=== PATIENT | male | born 1995 | race American Indian/Alaskan Native ===

== ENCOUNTER 2018-02-18 14:25 | Observation (INO) | payer BC ==
--- NOTE | 2018-02-18 14:52 | ED PDOC ---
Arrival/HPI - General Time Seen by Provider: 02/18/18 14:45 Historian: Patient - History of Present Illness Narrative History of Present Illness (Text): 02/18/18 14:46 22 y/o male, no significant pmh, nkda, c/o generalized abdominal pain with diarrhea/nausea x 4 days after came back from [place]. Pt. stated that he return back from [place] about 4 days ago, been drinking bottled water there, no sick contact, been having epigastric and lower abdominal pain, feeling nausea with no vomiting, admits diarrhea, no recent antibiotic use for the past 3 months, no palpitation, no night sweat, no dizziness, no numbness or tingling, no other medical or psychological complaints. Past Medical History - Provider Review Nursing Documentation Reviewed: Yes Family/Social History - Physician Review Nursing Documentation Reviewed: Yes Family/Social History: Unknown Family HX Allergies/Home Meds Allergies/Adverse Reactions: Allergies No Known Allergies Allergy (Verified 02/18/18 14:51) Home Medications: Home Meds Medication Instructions Recorded Confirmed No Known Home Med 02/18/18 02/18/18 Review of Systems - Review of Systems Constitutional: absent: Fatigue, Fevers Eyes: absent: Vision Changes ENT: absent: Hearing Changes Respiratory: absent: SOB, Cough Cardiovascular: absent: Chest Pain Gastrointestinal: Abdominal Pain, Nausea. absent: Diarrhea, Vomiting Genitourinary Male: absent: Dysuria, Frequency Musculoskeletal: absent: Arthralgias, Back Pain Skin: absent: Rash, Pruritis, Skin Lesions Neurological: absent: Headache, Dizziness Psychiatric: absent: Anxiety, Depression, Suicidal Ideation Physical Exam Vital Signs Reviewed: Yes Vital Signs Temp Pulse Resp BP Pulse Ox 02/18/18 17:20 76 19 129/56 L 98 02/18/18 16:42 85 02/18/18 14:47 97.8 F 62 18 133/78 99 02/18/18 14:25 98 F 85 Temperature: Afebrile Blood Pressure: Normal Pulse: Regular Respiratory Rate: Normal Appearance: Positive for: Well-Appearing, Non-Toxic, Comfortable Pain Distress: Mild Mental Status: Positive for: Alert and Oriented X 3 - Systems Exam Head: Present: Atraumatic, Normocephalic Pupils: Present: PERRL Extroacular Muscles: Present: EOMI Conjunctiva: Present: Normal Mouth: Present: Moist Mucous Membranes Neck: Present: Normal Range of Motion Respiratory/Chest: Present: Clear to Auscultation, Good Air Exchange. No: Respiratory Distress, Accessory Muscle Use Cardiovascular: Present: Regular Rate and Rhythm, Normal S1, S2. No: Murmurs Abdomen: Present: Tenderness (epigastric and periumbilical region, negative keys signs. ). No: Distention, Peritoneal Signs, Rebound, Guarding Back: Present: Normal Inspection Upper Extremity: Present: Normal Inspection. No: Cyanosis, Edema Lower Extremity: Present: Normal Inspection. No: Edema Neurological: Present: GCS=15, CN II-XII Intact, Speech Normal, Motor Func Grossly Intact, Gait Normal, Memory Normal Skin: Present: Warm, Dry, Normal Color. No: Rashes Psychiatric: Present: Alert, Oriented x 3, Normal Insight, Normal Concentration Medical Decision Making ED Course and Treatment: 02/18/18 14:56 Differential: Colitis vs. Dehydration vs. Gastroenteritis vs. Appendicitis -Labs/lipase/UA/stool culture -CT abdomen and pelvis -IVF/pepcid/zofran -Observe and reassess 02/18/18 18:36 -CT abdomen and pelvis show Findings suggest enterocolitis. What is felt to represent the appendix exhibits slightly prominent caliber measuring up to 7 mm with minimal wall thickening though this is probably reactive secondary to the aforementioned changes of enterocolitis. Clinical correlation recommended however. -Labs are non-significant -UA show no UTI -Pt. still having pain, periumbilical pain region still remain, still has diarrhea, CT show enterocolitis with possible appendicitis?, will admit the patient for observation. IV rocephine and flagyl ordered for the patient. -I spoke to Dr. Rooney about this case, agreed to admit to her service with DR. Hutchinson for the consult on this case. -Dr. Robb will put in the admission order. 02/18/18 18:43 -I spoke to the surgical product sales consultant DR. Katie Miller, discussed about the case/labs/ radiology result, agreed to evaluate the patient and consult with Dr. Hutchinson - Lab Interpretations Lab Results: 02/18/18 15:55 02/18/18 15:55 Lab Results 02/18/18 17:09: Urine Color Light yellow, Urine Appearance Clear, Urine pH 6.0, Ur Specific [place] 1.025, Urine Protein Negative, Urine Glucose (UA) Negative, Urine Ketones Negative, Urine Blood Negative, Urine Nitrate Negative, Urine Bilirubin Negative, Urine Urobilinogen 0.2, Ur Leukocyte Esterase Negative 02/18/18 15:55: WBC 7.4, RBC 5.68, Hgb 14.6, Hct 43.4, MCV 76.4 L, MCH 25.7, MCHC 33.6, RDW 12.7, Plt Count 241, MPV 8.6, Gran % 59.3, Lymph % (Auto) 23.9, [place] % (Auto) 15.7 H, Eos % (Auto) 0.8 L, Baso % (Auto) 0.3, Gran # 4.39, Lymph # (Auto) 1.8, [place] # (Auto) 1.2 H, Eos # (Auto) 0.1, Baso # (Auto) 0.02 02/18/18 15:55: Sodium 141, Potassium 4.3, Chloride 103, Carbon Dioxide 28, Anion Gap 14, BUN 12, Creatinine 0.8, Est GFR ( Amer) > 60, Est GFR (Non- Af Amer) > 60, Random Glucose 85, Calcium 9.6, Magnesium 1.9, Total Bilirubin 0.5, AST 23, ALT 30, Alkaline Phosphatase 82, Total Protein 7.2, Albumin 4.1, Globulin 3.1, Albumin/Globulin Ratio 1.3, Lipase 59 - RAD Interpretation Radiology Orders: 02/18/18 14:53 ABD & PELVIS IV CONTRAST ONLY [CT] Stat Date of service: 02/18/2018 PROCEDURE: CT Abdomen and Pelvis with Oral contrast. HISTORY: abdominal pain/diarrhea COMPARISON: None. TECHNIQUE: Contiguous axial images of the abdomen and pelvis performed following intravenous injection of approximately 96 cc Omnipaque 350 contrast material. Additional 2D sagittal and coronal reformats generated. This CT exam was performed using one or more of the following dose reduction techniques: Automated exposure control, adjustment of the mA and/or kV according to patient size, and/or use of iterative reconstruction technique. Total exam DLP = 430.51 mGy-cm. FINDINGS: LOWER THORAX: Lung bases clear. No infiltrate effusion or basilar pneumothorax. There is a tiny hiatal hernia. Heart size within range of normal. No significant pericardial effusion. . LIVER: Liver appears upper limits of normal measuring just over 18 cm in CC dimension. No obvious hepatic mass collection or calcification. GALLBLADDER AND BILE DUCTS: Gallbladder is incompletely distended. No evidence of intraluminal gallbladder calculi PANCREAS: Unremarkable. No mass. No ductal dilatation. SPLEEN: Unremarkable. No splenomegaly. ADRENALS: There are no adrenal lesions. KIDNEYS AND URETERS: Kidneys demonstrate symmetric nephrograms. No evidence of nephrolithiasis or hydronephrosis. BLADDER: Urinary bladder is incompletely distended which in part accounts thick-walled appearance. Muscular hypertrophy may contribute Possibility of a cystitis not excluded. Correlation with urinalysis recommended. REPRODUCTIVE: Unremarkable. APPENDIX: What is felt to represent a partially image the appendix seen on axial image number [id number]. The appendix measures up to approximately 7.2 mm with minimal enhancing wall. . The findings are likely reactive due to the below mentioned findings of enterocolitis however clinical correlation recommended to exclude BOWEL: Evaluation of the bowel is somewhat limited due to the lack of oral contrast material. Stomach is incompletely distended. There appear to be multiple loops of small bowel that exhibit mild wall thickening. In addition, the mid colon also exhibits wall thickening. The findings may represent an enterocolitis. Clinical correlation recommended PERITONEUM: Unremarkable. No fluid collection. No free air. LYMPH NODES: Unremarkable. No enlarged lymph nodes. VASCULATURE: Unremarkable. No aortic aneurysm. BONES: No fracture or destructive lesion. OTHER FINDINGS: None. IMPRESSION: Findings suggest enterocolitis. What is felt to represent the appendix exhibits slightly prominent caliber measuring up to 7 mm with minimal wall thickening though this is probably reactive secondary to the aforementioned changes of enterocolitis. Clinical correlation recommended however. Chainstitch Hemmer: Radiologist - Medication Orders Current Medication Orders: Metronidazole (Flagyl) 500 mg in 100 mls @ 100 mls/hr IVPB STAT STA PRN Reason: Protocol Stop: 02/18/18 19:34 Ceftriaxone Sodium (Rocephin 1 Gram Ivpb) 1 gm in 100 mls @ 200 mls/hr IVPB STAT STA PRN Reason: Protocol Stop: 02/18/18 19:04 Discontinued Medications Famotidine (Pepcid) 20 mg IVP STAT STA Stop: 02/18/18 14:54 Last Admin: 02/18/18 15:36 Dose: 20 mg IVP Administration Document 02/18/18 15:36 GMI (Rec: 02/18/18 15:36 GMI [id number]) Charges for Administration # of IVP Administrations 1 Sodium Chloride (Sodium Chloride 0.9%) 1,000 mls @ 999 mls/hr IV .Q1H1M STA Stop: 02/18/18 15:53 Last Admin: 02/18/18 15:35 Dose: 999 mls/hr eMAR Start Stop Document 02/18/18 15:35 GMI (Rec: 02/18/18 15:36 GMI [id number]) Intravenous Solution Start Date 02/18/18 Start Time 15:36 End Date 02/18/18 End time 16:40 Total Infusion Time 64 Morphine Sulfate (Morphine) 4 mg IVP STAT STA Stop: 02/18/18 18:36 Ondansetron HCl (Zofran Inj) 4 mg IVP STAT STA Stop: 02/18/18 14:54 Last Admin: 02/18/18 15:35 Dose: 4 mg IVP Administration Document 02/18/18 15:35 GMI (Rec: 02/18/18 15:35 GMI [id number]) Charges for Administration # of IVP Administrations 1 - PA / SERVICE PARTS COORDINATOR / Resident Statement / has reviewed & agrees with the documentation as recorded. Disposition/Present on Arrival - Present on Arrival Any Indicators Present on Arrival: No History of DVT/PE: No History of Uncontrolled Diabetes: No Urinary Catheter: No History of Decub. Ulcer: No - Disposition Have Diagnosis and Disposition been Completed?: Yes Diagnosis: Colitis, Abdominal pain, Diarrhea, Abnormal CT of the abdomen Disposition: HOSPITALIZED Disposition Time: 18:40 Patient Plan: Admission, Observation Patient Problems: Current Active Problems Problem Status Onset Colitis Acute Abdominal pain Acute Diarrhea Acute Abnormal CT of the abdomen Acute Condition: STABLE
[2018-02-18] MEDS ORDERED: Sodium Chloride 0.9% 1,000 ML IV STA (14:53)
[2018-02-18 16:10] LABS: BASO # 0.02 K/mm3 (0.0-2.0); BASO % 0.3 % (0.0-3.0); EOS # 0.1 (0.0-0.7); EOS % 0.8 % (1.5-5.0); GRAN # 4.39 (1.4-6.5); GRAN % 59.3 % (50.0-68.0); HEMOGLOBIN 14.6 g/dL (14.0-18.0); LYMPH # 1.8 (1.2-3.4); LYMPH % 23.9 % (22.0-35.0); MEAN CELL VOLUME 76.4 fl (80.0-105.0); MEAN CORPUSCULAR HEMOGLOBIN 25.7 pg (25.0-35.0); MEAN CORPUSCULAR HGB CONC 33.6 g/dl (31.0-37.0); MEAN PLATELET VOLUME 8.6 fl (7.0-11.0); MONO # 1.2 (0.1-0.6); MONO % 15.7 % (1.0-6.0); RBC 5.68 10^6/uL (3.5-6.1); RED CELL DISTRIBUTION WIDTH 12.7 % (11.5-14.5); WHITE BLOOD COUNT 7.4 10^3/ul (4.5-11.0)
[2018-02-18 16:30] LABS: ALB/GLOB RATIO 1.3 (1.1-1.8); ALBUMIN 4.1 g/dL (3.0-4.8); ALT/SGPT 30 U/L (7-56); AST/SGOT 23 U/L (17-59); BLOOD UREA NITROGEN 12 mg/dL (7-21); CALCIUM 9.6 mg/dL (8.4-10.5); GFR AFRICAN-AMERICAN > 60; GFR NON-AFRICAN AMERICAN > 60; LIPASE 59 U/L (23-300)
[2018-02-18] MEDS ORDERED: Iohexol 350 MG/100 ML VIAL ONE (17:05)
[2018-02-18 17:15] LABS: URINE BILIRUBIN NEGATIVE (NEGATIVE); URINE BLOOD NEGATIVE (NEGATIVE); URINE GLUCOSE (UA) NEGATIVE (NEGATIVE); URINE LEUKOCYTE ESTERASE NEGATIVE Leu/uL (NEGATIVE); URINE PROTEIN NEGATIVE mg/dL (<30 mg/dL); URINE UROBILINOGEN 0.2 E.U./dL (<1 E.U./dL)
[2018-02-18 17:16] LABS: URINE APPEARANCE CLEAR (CLEAR); URINE COLOR LIGHT YELLOW (YELLOW)
--- NOTE | 2018-02-18 17:51 | CT ---
Date of service: 02/18/2018 PROCEDURE: CT Abdomen and Pelvis with Oral contrast. HISTORY: abdominal pain/diarrhea COMPARISON: None. TECHNIQUE: Contiguous axial images of the abdomen and pelvis performed following intravenous injection of approximately 96 cc Omnipaque 350 contrast material. Additional 2D sagittal and coronal reformats generated. This CT exam was performed using one or more of the following dose reduction techniques: Automated exposure control, adjustment of the mA and/or kV according to patient size, and/or use of iterative reconstruction technique. Total exam DLP = 430.51 mGy-cm. FINDINGS: LOWER THORAX: Lung bases clear. No infiltrate effusion or basilar pneumothorax. There is a tiny hiatal hernia. Heart size within range of normal. No significant pericardial effusion. . LIVER: Liver appears upper limits of normal measuring just over 18 cm in CC dimension. No obvious hepatic mass collection or calcification. GALLBLADDER AND BILE DUCTS: Gallbladder is incompletely distended. No evidence of intraluminal gallbladder calculi PANCREAS: Unremarkable. No mass. No ductal dilatation. SPLEEN: Unremarkable. No splenomegaly. ADRENALS: There are no adrenal lesions. KIDNEYS AND URETERS: Kidneys demonstrate symmetric nephrograms. No evidence of nephrolithiasis or hydronephrosis. BLADDER: Urinary bladder is incompletely distended which in part accounts thick-walled appearance. Muscular hypertrophy may contribute Possibility of a cystitis not excluded. Correlation with urinalysis recommended. REPRODUCTIVE: Unremarkable. APPENDIX: What is felt to represent a partially image the appendix seen on axial image number [id number]. The appendix measures up to approximately 7.2 mm with minimal enhancing wall. . The findings are likely reactive due to the below mentioned findings of enterocolitis however clinical correlation recommended to exclude BOWEL: Evaluation of the bowel is somewhat limited due to the lack of oral contrast material. Stomach is incompletely distended. There appear to be multiple loops of small bowel that exhibit mild wall thickening. In addition, the mid colon also exhibits wall thickening. The findings may represent an enterocolitis. Clinical correlation recommended PERITONEUM: Unremarkable. No fluid collection. No free air. LYMPH NODES: Unremarkable. No enlarged lymph nodes. VASCULATURE: Unremarkable. No aortic aneurysm. BONES: No fracture or destructive lesion. OTHER FINDINGS: None. IMPRESSION: Findings suggest enterocolitis. What is felt to represent the appendix exhibits slightly prominent caliber measuring up to 7 mm with minimal wall thickening though this is probably reactive secondary to the aforementioned changes of enterocolitis. Clinical correlation recommended however.
[2018-02-18] MEDS ORDERED: Morphine 4 mg/ml ISec IVP STA (18:35)
[2018-02-18] MEDS ORDERED: metroNIDAZOLE IV 500 mg/100 ml 500 MG/100 ML BAG IVPB STA (18:35)
[2018-02-18] MEDS ORDERED: cefTRIAXone 1 gm 1 GM/100 ML BAG IVPB STA (18:35)
[2018-02-18 19:11] LABS: INR 1.07; PARTIAL THROMBOPLASTIN TIME 29.6 Seconds (25.1-36.5); PROTHROMBIN TIME 12.2 SECONDS (9.4-12.5)
--- NOTE | 2018-02-18 19:24 | CP.PCM.CON ---
<Greg Anne - Last Filed: 02/19/18 06:21> History of Present Illness - History of Present Illness History of Present Illness: General Surgery Consult Note for Dr. Hutchinson Reason for consult: abdominal pain, diarrhea 22 M with no significant PMH [place] [facility] [place] pain. Patient was seen and examined in the ED. Patient states that pain began on Monday. He states that he was in [place] for vacation last week. He reports sudden onset and states pain is accompanied by episodes of non-bloody, watery diarrhea. He states that hes had at least 2 episodes of diarrhea per day since onset. He rates pain as mild currently. Patient reports to taking loperamide with minimal relief. He describes it as constant and aching located periumbilical region. Nothing makes pain better or worse. He denies any associated fever/chills, nausea/vomiting or anorexia. PMH: Denies Meds: Denies Allergy: NKDA PSH: Denies FH: non-contributory Social: denies tobacco/EtOH/illicit drug use, works on [employer] Review of Systems - Review of Systems All systems: reviewed and no additional remarkable complaints except (as per HPI ) Past Patient History - Infectious Disease Hx of Infectious Diseases: None - Past Social History Smoking Status: Unknown If Ever Smoked - PSYCHIATRIC Hx Substance Use: No - SURGICAL HISTORY Hx Surgeries: No - ANESTHESIA Hx Anesthesia: No Meds Allergies/Adverse Reactions: Allergies Allergy/AdvReac Type Severity Reaction Status Date / Time No Known Allergies Allergy Verified 02/18/18 14:51 - Medications Medications: Current Medications Metronidazole (Flagyl) 500 mg in 100 mls @ 100 mls/hr IVPB STAT STA PRN Reason: Protocol Stop: 02/18/18 19:34 Last Admin: 02/18/18 18:51 Dose: 100 mls/hr Physical Exam - Constitutional Appears: No Acute Distress - Head Exam Head Exam: ATRAUMATIC, NORMOCEPHALIC - Eye Exam Eye Exam: EOMI, Normal appearance Pupil Exam: PERRL - ENT Exam ENT Exam: Mucous Membranes Moist - Respiratory Exam Respiratory Exam: NORMAL BREATHING PATTERN - Cardiovascular Exam Cardiovascular Exam: REGULAR RHYTHM - GI/Abdominal Exam GI & Abdominal Exam: Hyperactive Bowel Sounds, Soft, Tenderness (periumbilical) . absent: Distended, Firm, Guarding, Hernia, Rebound, Rigid - Extremities Exam Extremities exam: Positive for: normal capillary refill, pedal pulses present - Back Exam Back exam: absent: CVA tenderness (L), CVA tenderness (R) - Neurological Exam Neurological exam: Alert, Normal Gait, Oriented x3 - Psychiatric Exam Psychiatric exam: Normal Affect, Normal Mood - Skin Skin Exam: Dry, Intact, Normal Color, Warm Results - Vital Signs Recent Vital Signs: Last Vital Signs Temp 98.5 F 02/18/18 18:58 Pulse 73 02/18/18 18:58 Resp 19 02/18/18 18:58 BP 129/56 L 02/18/18 17:20 Pulse Ox 100 02/18/18 18:58 - Labs Result Diagrams: 02/18/18 15:55 02/18/18 15:55 Labs: Laboratory Results - last 24 hr 02/18/18 02/18/18 02/18/18 15:30 15:55 15:55 WBC 7.4 RBC 5.68 Hgb 14.6 Hct 43.4 MCV 76.4 L MCH 25.7 MCHC 33.6 RDW 12.7 Plt Count 241 MPV 8.6 Gran % 59.3 Lymph % (Auto) 23.9 [place] % (Auto) 15.7 H Eos % (Auto) 0.8 L Baso % (Auto) 0.3 Gran # 4.39 Lymph # (Auto) 1.8 [place] # (Auto) 1.2 H Eos # (Auto) 0.1 Baso # (Auto) 0.02 PT 12.2 INR 1.07 APTT 29.6 Sodium 141 Potassium 4.3 Chloride 103 Carbon Dioxide 28 Anion Gap 14 BUN 12 Creatinine 0.8 Est GFR ( Amer) > 60 Est GFR (Non-Af Amer) > 60 Random Glucose 85 Calcium 9.6 Magnesium 1.9 Total Bilirubin 0.5 AST 23 ALT 30 Alkaline Phosphatase 82 Total Protein 7.2 Albumin 4.1 Globulin 3.1 Albumin/Globulin Ratio 1.3 Lipase 59 Urine Color Urine Appearance Urine pH Ur Specific [place] Urine Protein Urine Glucose (UA) Urine Ketones Urine Blood Urine Nitrate Urine Bilirubin Urine Urobilinogen Ur Leukocyte Esterase 02/18/18 17:09 WBC RBC Hgb Hct MCV MCH MCHC RDW Plt Count MPV Gran % Lymph % (Auto) [place] % (Auto) Eos % (Auto) Baso % (Auto) Gran # Lymph # (Auto) [place] # (Auto) Eos # (Auto) Baso # (Auto) PT INR APTT Sodium Potassium Chloride Carbon Dioxide Anion Gap BUN Creatinine Est GFR ( Amer) Est GFR (Non-Af Amer) Random Glucose Calcium Magnesium Total Bilirubin AST ALT Alkaline Phosphatase Total Protein Albumin Globulin Albumin/Globulin Ratio Lipase Urine Color Light yellow Urine Appearance Clear Urine pH 6.0 Ur Specific [place] 1.025 Urine Protein Negative Urine Glucose (UA) Negative Urine Ketones Negative Urine Blood Negative Urine Nitrate Negative Urine Bilirubin Negative Urine Urobilinogen 0.2 Ur Leukocyte Esterase Negative Assessment & Plan - Assessment and Plan (Free Text) Assessment: 22 M with abdominal pain and diarrhea; CT findings of enterocolitis Plan: -CLD, ADAT -IV fluids -IV antibiotics -Analgesics PRN -f/u stool studies -Further recommendations as per Dr. Jasper Anne PGY1 - Date & Time Date: 02/18/18 Time: 18:50 <James Hutchinson - Last Filed: 02/21/18 14:09> Results - Vital Signs Recent Vital Signs: Last Vital Signs Temp 97.9 F 02/20/18 08:10 Pulse 62 02/20/18 08:10 Resp 20 02/20/18 08:10 BP 101/52 L 02/20/18 08:10 Pulse Ox 100 02/20/18 08:10 - Labs Result Diagrams: 02/19/18 07:00 02/19/18 07:00 Attending/Attestation - Attestation I have personally seen and examined this patient.: Yes I have fully participated in the care of the patient.: Yes I have reviewed all pertinent clinical information: Yes Notes (Text): Pt was seen and examined at bedside Agree with above note and assessment Pt presented with abdominal pain and diarrhea Mild abdominal tenderness Labs and radiology reviewed Ass: Enterocolitis, No clinical evidence of Appendicitis Plan: C.w IV antibiotics GI consult Liquid diet Plan d.w pt and primary team in detail Risk and benefit explained in detail.
[2018-02-18] MEDS: Lactated Ringer's 1,000 ML IV SCH (20:04)
[2018-02-18 20:54] VITALS: BMI 24.4
[2018-02-18] MEDS: Ciprofloxacin 400mg/200ml D5W 400 MG/200 ML BAG IVPB SCH (21:34)
[2018-02-18] MEDS: metroNIDAZOLE IV 500 mg/100 ml 500 MG/100 ML BAG IVPB SCH (23:10)
[2018-02-19] MEDS: metroNIDAZOLE IV 500 mg/100 ml 500 MG/100 ML BAG IVPB SCH ×3 (05:41→22:46)
--- NOTE | 2018-02-19 07:07 | CP.PCM.PN ---
<Vance Bustillos - Last Filed: 02/19/18 16:02> Subjective - Date & Time of Evaluation Date of Evaluation: 02/19/18 Time of Evaluation: 06:45 - Subjective Subjective: General Surgery Progress Note for Dr. Hutchinson Pt was seen and examined at beside this AM. No acute events reported overnight. Pt tolerating diet well, lawrence-umbilical abdominal pain has improved. No associated fevers/chills, nausea/vomiting, or anorexia. Objective - Vital Signs/Intake and Output Vital Signs (last 24 hours): Temp Pulse Resp BP Pulse Ox 97.9 F 58 L 20 107/65 99 02/18/18 22:00 02/18/18 22:00 02/18/18 22:00 02/18/18 22:00 02/18/18 22:00 - Medications Medications: Current Medications Acetaminophen (Tylenol 325mg Tab) 650 mg PO Q6H PRN PRN Reason: Pain, Mild (1-3) Ciprofloxacin (Cipro 400mg/200ml Dsw) 400 mg in 200 mls @ 133.3 mls/hr IVPB Q12 KARLA PRN Reason: Protocol Last Admin: 02/18/18 21:34 Dose: 133.3 mls/hr Metronidazole (Flagyl) 500 mg in 100 mls @ 100 mls/hr IVPB Q8 KARLA PRN Reason: Protocol Last Admin: 02/19/18 05:41 Dose: 100 mls/hr Lactated Ringer's (Lactated Ringer's) 1,000 mls @ 125 mls/hr IV .Q8H KARLA Last Admin: 02/18/18 20:04 Dose: 125 mls/hr Tramadol HCl (Ultram) 50 mg PO Q6H PRN PRN Reason: Pain, moderate (4-7) Last Admin: 02/18/18 23:24 Dose: 50 mg - Labs Labs: PT 12.2 SECONDS (9.4-12.5) 02/18/18 15:30 INR 1.07 02/18/18 15:30 APTT 29.6 Seconds (25.1-36.5) 02/18/18 15:30 - Constitutional Appears: Non-toxic, No Acute Distress - Head Exam Head Exam: ATRAUMATIC, NORMAL INSPECTION, NORMOCEPHALIC - Eye Exam Eye Exam: Normal appearance - Neck Exam Neck Exam: Normal Inspection - Cardiovascular Exam Cardiovascular Exam: RRR, +S1, +S2 - GI/Abdominal Exam GI & Abdominal Exam: Soft, Tenderness (Mild TTP (periumbilical)). absent: Distended, Firm, Guarding, Rigid, Rebound - Extremities Exam Extremities Exam: Normal Inspection - Back Exam Back Exam: NORMAL INSPECTION - Neurological Exam Neurological Exam: Alert, Awake, Oriented x3 - Psychiatric Exam Psychiatric exam: Normal Affect, Normal Mood - Skin Skin Exam: Dry, Intact, Normal Color, Warm Assessment and Plan - Assessment and Plan (Free Text) Assessment: 22 yo M with abdominal pain and diarrhea; CT findings of enterocolitis. Plan: -Ciprofloxacin 500 mg BID x 10 days -Flagyl 500 mg BID x 10 days -Possible GI evaluation, as per Dr. Guthrie -further recs as per Dr. Jasper Bustillos, PGY-1 <James Hutchinson - Last Filed: 02/21/18 14:12> Objective - Vital Signs/Intake and Output Vital Signs (last 24 hours): Temp Pulse Resp BP Pulse Ox 97.9 F 62 20 101/52 L 100 02/20/18 08:10 02/20/18 08:10 02/20/18 08:10 02/20/18 08:10 02/20/18 08:10 - Labs Labs: 02/19/18 07:00 02/19/18 07:00 PT 12.2 SECONDS (9.4-12.5) 02/18/18 15:30 INR 1.07 02/18/18 15:30 APTT 29.6 Seconds (25.1-36.5) 02/18/18 15:30 Attending/Attestation - Attestation I have personally seen and examined this patient.: Yes I have fully participated in the care of the patient.: Yes I have reviewed all pertinent clinical information, including history, physical exam and plan: Yes Notes (Text): Pt was seen and examined at bedside Agree with above note and assessment Pt with enterocolitis C.w IV antibiotics GI consult Liquid diet Can be DC home with PO antibiotics F/u as out pt Plan d.w pt and primary team in detail Risk and benefit explained in detail.
[2018-02-19 07:12] LABS: BASO # 0.03 K/mm3 (0.0-2.0); BASO % 0.6 % (0.0-3.0); EOS # 0.1 (0.0-0.7); EOS % 2.2 % (1.5-5.0); GRAN # 2.37 (1.4-6.5); GRAN % 47.7 % (50.0-68.0); HEMOGLOBIN 13.2 g/dL (14.0-18.0); LYMPH # 1.7 (1.2-3.4); MEAN CELL VOLUME 76.5 fl (80.0-105.0); MEAN CORPUSCULAR HGB CONC 32.8 g/dl (31.0-37.0); MEAN PLATELET VOLUME 8.4 fl (7.0-11.0); MONO # 0.7 (0.1-0.6); MONO % 14.5 % (1.0-6.0); RBC 5.27 10^6/uL (3.5-6.1); RED CELL DISTRIBUTION WIDTH 12.7 % (11.5-14.5)
[2018-02-19 07:36] LABS: ALB/GLOB RATIO 1.2 (1.1-1.8); ALBUMIN 3.6 g/dL (3.0-4.8); ALT/SGPT 22 U/L (7-56); AST/SGOT 21 U/L (17-59); BLOOD UREA NITROGEN 9 mg/dL (7-21); CALCIUM 9.2 mg/dL (8.4-10.5); GFR AFRICAN-AMERICAN > 60; GFR NON-AFRICAN AMERICAN > 60
[2018-02-19] MEDS: Ciprofloxacin 400mg/200ml D5W 400 MG/200 ML BAG IVPB SCH ×2 (09:03→23:37)
[2018-02-19] MEDS: Lactated Ringer's 1,000 ML IV SCH (09:04)
[2018-02-19 16:49] VITALS: O2SAT 100
--- NOTE | 2018-02-19 17:21 | CP.PCM.CON ---
History of Present Illness - History of Present Illness History of Present Illness: GI Fellow PGY5 Consult Note This is a 22y M with no significant PMH presents to [facility] for complaint of abdominal pain and diarrhea for 5days. Patient states that abdominal pain associated with watery diarrhea began on Monday while in [place] for vacation last week. He reports sudden onset and states pain is accompanied by episodes of non-bloody, watery diarrhea. He states that hes had at least 2 episodes of diarrhea per day since onset. He described the pain as a dull ache located in the periumbilical area. Patient reports to taking loperamide with minimal relief. He denies any rectal bleeding, melena or foul order. Pt's friends also experienced similar symptoms but not as severe. He denies drinking any tap water but does recall eating alot of ice and snow cones prior to symptom onset. He denies any associated fever/chills, nausea/vomiting or anorexia. Pt denies any problems with bowels and abdominal pain on a regular basis and no prior hx of a similar incident. In the ER, pt had a CT concerning for possible appendicitis and enteritis and was admitted. However surgery has ruled out appendicitis and no indication of surgical intervention at this time. At the time of evaluation pt is comfortable with no abdominal pain, diarrhea an tolerating a diet. ROS: A 12pt ROS was negative except as above PMH: Denies PSH: Denies FH: Neg for IBD or colon cancer SH: Denies tobacco/EtOH/illicit drug use Past Patient History - Infectious Disease Hx of Infectious Diseases: None - Past Social History Smoking Status: Unknown If Ever Smoked - CARDIAC Hx Cardiac Disorders: No - PULMONARY Hx Respiratory Disorders: No - NEUROLOGICAL Hx Neurological Disorder: No - HEENT Hx HEENT Problems: No - RENAL Hx Chronic Kidney Disease: No - ENDOCRINE/METABOLIC Hx Endocrine Disorders: No - HEMATOLOGICAL/ONCOLOGICAL Hx Blood Disorders: No - INTEGUMENTARY Hx Dermatological Problems: No - MUSCULOSKELETAL/RHEUMATOLOGICAL Hx Musculoskeletal Disorders: No Hx Falls: No - GASTROINTESTINAL Hx Gastrointestinal Disorders: No - GENITOURINARY/GYNECOLOGICAL Hx Genitourinary Disorders: No - PSYCHIATRIC Hx Substance Use: No - SURGICAL HISTORY Hx Surgeries: No - ANESTHESIA Hx Anesthesia: No Meds Home Medications: Home Medication List Medication Instructions Recorded Confirmed Type Ciprofloxacin 500 mg PO BID #20 ml 02/19/18 Rx Metronidazole [Flagyl] 500 mg PO BID #20 tablet 02/19/18 Rx Allergies/Adverse Reactions: Allergies Allergy/AdvReac Type Severity Reaction Status Date / Time No Known Allergies Allergy Verified 02/18/18 14:51 - Medications Medications: Current Medications Acetaminophen (Tylenol 325mg Tab) 650 mg PO Q6H PRN PRN Reason: Pain, Mild (1-3) Ciprofloxacin (Cipro 400mg/200ml Dsw) 400 mg in 200 mls @ 133.3 mls/hr IVPB Q12 KARLA PRN Reason: Protocol Last Admin: 02/19/18 09:03 Dose: 133.3 mls/hr Metronidazole (Flagyl) 500 mg in 100 mls @ 100 mls/hr IVPB Q8 KARLA PRN Reason: Protocol Last Admin: 02/19/18 14:05 Dose: 100 mls/hr Lactated Ringer's (Lactated Ringer's) 1,000 mls @ 125 mls/hr IV .Q8H KARLA Last Admin: 02/19/18 09:04 Dose: 125 mls/hr Tramadol HCl (Ultram) 50 mg PO Q6H PRN PRN Reason: Pain, moderate (4-7) Last Admin: 02/18/18 23:24 Dose: 50 mg Physical Exam - Constitutional Appears: Non-toxic, No Acute Distress - Head Exam Head Exam: ATRAUMATIC, NORMAL INSPECTION, NORMOCEPHALIC - Eye Exam Eye Exam: EOMI, Normal appearance, PERRL Pupil Exam: PERRL - ENT Exam ENT Exam: Mucous Membranes Moist, Normal Exam - Neck Exam Neck exam: Positive for: Normal Inspection - Respiratory Exam Respiratory Exam: Clear to Auscultation Bilateral, NORMAL BREATHING PATTERN - Cardiovascular Exam Cardiovascular Exam: REGULAR RHYTHM, RRR, +S1, +S2 - GI/Abdominal Exam GI & Abdominal Exam: Normal Bowel Sounds, Soft. absent: Distended, Firm, Guarding, Organomegaly, Tenderness - Rectal Exam Rectal Exam: Deferred - Extremities Exam Extremities exam: Positive for: full ROM, normal inspection - Back Exam Back exam: NORMAL INSPECTION - Neurological Exam Neurological exam: Alert, Oriented x3 - Psychiatric Exam Psychiatric exam: Normal Affect, Normal Mood - Skin Skin Exam: Dry, Intact, Normal Color, Warm Results - Vital Signs Recent Vital Signs: Last Vital Signs Temp 98 F 02/19/18 16:49 Pulse 51 L 02/19/18 16:49 Resp 18 08/20/18 16:49 BP 118/70 02/19/18 16:49 Pulse Ox 100 02/19/18 16:49 - Labs Result Diagrams: 02/19/18 07:00 02/19/18 07:00 Labs: Laboratory Results - last 24 hr 02/19/18 02/19/18 07:00 07:00 WBC 5.0 D RBC 5.27 Hgb 13.2 L Hct 40.3 L MCV 76.5 L MCH 25.0 MCHC 32.8 RDW 12.7 Plt Count 212 MPV 8.4 Gran % 47.7 L Lymph % (Auto) 35.0 [place] % (Auto) 14.5 H Eos % (Auto) 2.2 Baso % (Auto) 0.6 Gran # 2.37 Lymph # (Auto) 1.7 [place] # (Auto) 0.7 H Eos # (Auto) 0.1 Baso # (Auto) 0.03 Sodium 140 Potassium 4.6 Chloride 104 Carbon Dioxide 28 Anion Gap 12 BUN 9 Creatinine 1.0 Est GFR ( Amer) > 60 Est GFR (Non-Af Amer) > 60 Random Glucose 93 Calcium 9.2 Phosphorus 4.2 Magnesium 1.9 Total Bilirubin 0.5 AST 21 ALT 22 Alkaline Phosphatase 67 Total Protein 6.6 Albumin 3.6 Globulin 3.0 Albumin/Globulin Ratio 1.2 Assessment & Plan - Assessment and Plan (Free Text) Assessment: This is a 22yM with no pmhx presenting with acute onset of abdominal pain and diarrhea. 1. Diarrhea-likely infectious/ traveler's diarrhea 2. Enteritis 3. Abdominal pain Plan: -Continue supportive care -Pt is clinically improved with resolved abdominal pain and diarrhea, tolerating a diet -Continue diet as tolerated -Change to po abx cipro/flagyl for total 10days prior to discharge -Stool studies pending -No appendicitis and intervention per surgery -Probiotics for one month -Pt okay for discharge home from GI perspective with followup in one month The above H/P and A/P was discussed with attending physician Dr. Weeks and he agrees with the above mentioned plan of care.
[2018-02-20] MEDS: metroNIDAZOLE IV 500 mg/100 ml 500 MG/100 ML BAG IVPB SCH (05:12)
[2018-02-20 08:11] VITALS: BP 101/52; PULSE 62; RESP 20; TEMP 97.9
--- NOTE | 2018-02-20 08:20 | CP.PCM.PN ---
Subjective - Date & Time of Evaluation Date of Evaluation: 02/20/18 Time of Evaluation: 08:00 - Subjective Subjective: GI Fellow PGY5 Progress Note Pt seen and evaluated at bedside, doing well with no abdominal pain and diarrhea. Tolerating a regular diet with no issues. ROS: A 12pt ROS was negative except as above Objective - Vital Signs/Intake and Output Vital Signs (last 24 hours): Temp Pulse Resp BP Pulse Ox 97.9 F 62 20 101/52 L 100 02/20/18 08:10 02/20/18 08:10 02/20/18 08:10 02/20/18 08:10 02/20/18 08:10 - Medications Medications: Current Medications Acetaminophen (Tylenol 325mg Tab) 650 mg PO Q6H PRN PRN Reason: Pain, Mild (1-3) Ciprofloxacin (Cipro 400mg/200ml Dsw) 400 mg in 200 mls @ 133.3 mls/hr IVPB Q12 KARLA PRN Reason: Protocol Last Admin: 02/19/18 23:37 Dose: 133.3 mls/hr Metronidazole (Flagyl) 500 mg in 100 mls @ 100 mls/hr IVPB Q8 KARLA PRN Reason: Protocol Last Admin: 02/20/18 05:12 Dose: 100 mls/hr Lactated Ringer's (Lactated Ringer's) 1,000 mls @ 125 mls/hr IV .Q8H KARLA Last Admin: 02/19/18 09:04 Dose: 125 mls/hr Tramadol HCl (Ultram) 50 mg PO Q6H PRN PRN Reason: Pain, moderate (4-7) Last Admin: 02/18/18 23:24 Dose: 50 mg - Labs Labs: 02/19/18 07:00 02/19/18 07:00 PT 12.2 SECONDS (9.4-12.5) 02/18/18 15:30 INR 1.07 02/18/18 15:30 APTT 29.6 Seconds (25.1-36.5) 02/18/18 15:30 - Constitutional Appears: Non-toxic, No Acute Distress - Head Exam Head Exam: ATRAUMATIC, NORMAL INSPECTION, NORMOCEPHALIC - Eye Exam Eye Exam: EOMI, Normal appearance, PERRL Pupil Exam: PERRL - ENT Exam ENT Exam: Mucous Membranes Moist - Neck Exam Neck Exam: Full ROM, Normal Inspection - Respiratory Exam Respiratory Exam: Clear to Ausculation Bilateral, NORMAL BREATHING PATTERN - Cardiovascular Exam Cardiovascular Exam: REGULAR RHYTHM, RRR, +S1, +S2 - GI/Abdominal Exam GI & Abdominal Exam: Soft, Normal Bowel Sounds. absent: Distended, Tenderness - Rectal Exam Rectal Exam: Deferred - Extremities Exam Extremities Exam: Full ROM, Normal Inspection - Back Exam Back Exam: NORMAL INSPECTION - Neurological Exam Neurological Exam: Alert, Awake, Oriented x3 - Psychiatric Exam Psychiatric exam: Normal Affect, Normal Mood - Skin Skin Exam: Normal Color, Warm Assessment and Plan - Assessment and Plan (Free Text) Assessment: This is a 22yM with no pmhx presenting with acute onset of abdominal pain and diarrhea. 1. Diarrhea-likely infectious/ traveler's diarrhea 2. Enteritis 3. Abdominal pain Plan: -Continue supportive care -Advance diet as tolerated -Change to po abx cipro/flagyl for total 10days prior to discharge -Probiotics for one month -Pt okay for discharge home from [facility] with followup in one month
--- NOTE | 2018-02-21 08:26 | HP ---
Copied To: Ayla Rooney MD Attending MD: Ayla Rooney MD CHIEF COMPLAINT: Abdominal pain. HISTORY OF PRESENT ILLNESS: Mr. Francisco Barros is a 22-year-old male with no significant past medical history, came complaining of generalized abdominal pain with diarrhea, nauseous for 4 days after coming back from [place]. The patient states that he came back from [place] about 4 days ago, being drinking bottled water there. No sick contact. Having epigastric pain, lower abdominal pain, feeling nauseous with no vomiting, admits to diarrhea. No recent antibiotic use for the past 3 months. No palpitation. No night sweats. No dizziness. No numbness or tingling sensation. No fever. No chills. We admitted the patient and GI consult called, antibiotics started. PAST MEDICAL HISTORY: Nonsignificant. FAMILY HISTORY: Father and mother noncontributory. ALLERGIES: THE PATIENT IS NOT ALLERGIC WITH ANY MEDICATIONS. HABITS: No smoking. No drugs. No ethanol. REVIEW OF SYSTEMS: The patient was seen and examined on the bedside. Looking comfortable. Still complaining about abdominal pain. No shortness of breath. No fever. No chills. No hematuria or hematochezia. PHYSICAL EXAMINATION: VITAL SIGNS: Temperature 97.9, pulse 58, respiratory rate 20, blood pressure 107/55, pulse oximetry 99. HEENT: Head normocephalic, atraumatic. Eyes PERRLA. Extraocular muscles intact. Conjunctivae clear. Nose patent. Mucous membrane moist. NECK: Supple. No carotid bruit. No JVD or thyromegaly. CHEST: Bilaterally symmetrical. HEART: S1 and S2 positive. LUNGS: Clear to auscultation. ABDOMEN: Soft, bowel sounds positive. No organomegaly. EXTREMITIES: No edema. No cyanosis. NEUROLOGICAL: The patient is awake and alert. Moving all 4 extremities. No focal deficits. MEDICATIONS: Tylenol, Cipro, Flagyl, lactate Ringers, tramadol. LABORATORY DATA: White blood cells 5.1, hemoglobin 13.2, hematocrit 40.3, platelets 212. Sodium 140, potassium 4.7, BUN 9, creatinine 1, glucose 93, AST 21, ALT 22. ASSESSMENT AND PLAN: Mr. Francisco Barros is a 22-year-old male with anemia, came with abdominal pain, with diarrhea. Rule out traveler's diarrhea. CAT scan of the abdomen and pelvis appreciated. Abdominal pain is of acute onset. Rule out enteritis. Diarrhea, likely infectious/traveler's diarrhea. Continue supportive care. Diarrhea is improving. Food is offered. Continue diet as tolerated. Antibiotics, Cipro and Flagyl for 10 days. Stool studies done, but pending. No appendicitis and interventional ____ surgery needed. The patient is seen by copy supervisor and surgeon. The patient's mother, [id number] and girlfriend was sitting on the bedside. Length of time discussion done with the patient's family and patient's nursing staff. All questions answered. We will follow up. Ayla Rooney MD
== END 2018-02-20 10:46 | disposition home or self-care (01) ==
LOC: ED 14:25 → ERH 18:40 → 5RSO 20:11
PROVIDERS: ADMIT Internal Medicine Nephrology; ATTEND Internal Medicine
DX: A09 Infectious gastroenteritis and colitis, unspecified (principal); D64.9 Anemia, unspecified
CPT/HCPCS: 36415; 74177; 80053; 81003; 83690; 83735; 84100; 85025; 85610; 85730; 96361; 96365; 96366; 96367; 96375; 96376; 99285; G0378; J0696; J0744; J2270; J2405; J7030; J7120; Q9967